=== PATIENT | female | born 1990 | race American Indian/Alaskan Native ===

== ENCOUNTER 2017-09-04 17:34 | Emergency (ER) | payer SELFPAY ==
[2017-09-04 17:49] VITALS: BP 142/91; PULSE 79; RESP 16; TEMP 98.1; O2SAT 98
--- NOTE | 2017-09-04 18:44 | C.PDOC ---
History Of Present Illness 27 y/o female w/o significant PMHx presents to ED for evaluation of cold like symptoms associated with nasal congestion, runny nose, worsening or sore throat for 1 week. Patient reports pain when swallowing for "few days". Otherwise, pt denies high fever, chills, headache, dizziness, ear discharge or pain, drooling , CP, SOB, dyspnea, wheezing, abd. pain, nausea, vomiting or any other complaints at this time. Ambulate to Ed for evaluation, not in any apparent distress. Time Seen by Provider: 09/04/17 17:48 Chief Complaint (Nursing): ENT Problem History Per: Patient History/Exam Limitations: None Onset/Duration Of Symptoms: Days Current Symptoms Are (Timing): Still Present Past Medical History Reviewed: Historical Data, Nursing Documentation, Vital Signs Vital Signs: Last Vital Signs Temp 98.1 F 09/04/17 17:46 Pulse 79 09/04/17 17:46 Resp 16 09/04/17 17:46 BP 142/91 H 09/04/17 17:46 Pulse Ox 98 09/04/17 18:47 - Medical History PMH: No Chronic Diseases Surgical History: No Surg Hx Family History: States: No Known Family Hx - Social History Hx Tobacco Use: No Hx Alcohol Use: Yes Hx Substance Use: No - Immunization History Hx Tetanus Toxoid Vaccination: No Hx Influenza Vaccination: No Hx Pneumococcal Vaccination: No Review Of Systems Constitutional: Negative for: Fever, Chills ENT: Positive for: Nose Congestion, Throat Pain Cardiovascular: Negative for: Chest Pain Respiratory: Positive for: Cough. Negative for: Shortness of Breath Gastrointestinal: Negative for: Nausea, Vomiting Skin: Negative for: Rash Physical Exam - Physical Exam Appears: Well, Non-toxic, No Acute Distress Skin: Warm, Dry, No Rash Head: Normacephalic Eye(s): bilateral: PERRL Ear(s): Bilateral: Normal Nose: Discharge (clear rhinorrhea), Other (Bilateral nasal congestion) Oral Mucosa: Moist, No Drooling, No Trismus Tongue: Normal Appearing Lips: Normal Appearing Throat: Erythema (B/L modearte), Exudate (B/L scant tonsillar with mod edema.), Other (uvula midline, no edema.) Neck: Trachea Midline, Supple, Other ((-) meningeal sign) Cardiovascular: Rhythm Regular Respiratory: No Decreased Breath Sounds, No Accessory Muscle Use, No Rales, No Rhonchi, No Stridor, No Wheezing Gastrointestinal/Abdominal: Soft, No Tenderness, No Distention, No Guarding, No Rebound Extremity: Normal ROM, No Swelling Neurological/Psych: Oriented x3, Normal Speech, Normal Cognition ED Course And Treatment O2 Sat by Pulse Oximetry: 98 (RA) Pulse Ox Interpretation: Normal Progress Note: On re-evaluation, pt is afebrile, hemodynamicaly stable. Non- toxic. Tolerate Po well in ED. PulseOx 98 % RA. neck: Supple, (-) meningeal sign. ENT: exam c/w acute pharyngitis/tonsillitis. uvula midline, no edema. Lungs: CTA B/L, BS equal B/L. Abd: benign. Neuorlogicaly intact. Pt advised. ref. to f/u with PMD, ENT in 2-3 days for re-eval. return to ED if any worsening or new changes. Disposition Counseled Patient/Family Regarding: Diagnosis, Need For Followup, Rx Given - Disposition Referrals: Ja Rainey MD [Staff Provider] - Disposition: HOME/ ROUTINE Disposition Time: 18:41 Condition: STABLE Additional Instructions: Encourage fluids take medication as prescribed Follow up with PMD, ENT in 2-3 days for re-evaluation. return to ED if any worsening or new changes. Prescriptions: Clindamycin [Cleocin] 300 mg PO TID #21 cap Prednisone [Deltasone] 20 mg PO DAILY #4 tablet Instructions: Sore Throat, Adult (DC) Forms: [facility] ([place]), Work Excuse - Clinical Impression Clinical Impression: Acute tonsillitis - PA / [employer] / Resident Statement MD/DO has reviewed & agrees with the documentation as recorded. - Scribe Statement The provider has reviewed the documentation as recorded by the Danna Holloway All medical record entries made by the Danna were at my direction and personally dictated by me. I have reviewed the chart and agree that the record accurately reflects my personal performance of the history, physical exam, medical decision making, and the department course for this patient. I have also personally directed, reviewed, and agree with the discharge instructions and disposition.
== END 2017-09-04 18:56 | disposition home or self-care (01) ==
LOC: C.ER 17:34
DX: J03.90 Acute tonsillitis, unspecified (principal)